=== PATIENT | male | born 1945 | race African-American/Black ===

== ENCOUNTER 2020-12-01 13:27 | Inpatient (IN) | payer OTHER ==
[2020-12-01] MEDS ORDERED: hydrALAZINE 20 MG/ML VIAL SLOW IVP PRN (14:50)
[2020-12-01] MEDS ORDERED: Acetaminophen 500 MG TAB PO PRN (14:50)
[2020-12-01] MEDS ORDERED: Ondansetron ODT 4 MG TAB PO PRN (14:50)
[2020-12-01] MEDS ORDERED: Ondansetron PF 4 MG/2 ML Vial IVP PRN (14:50)
[2020-12-01 17:31] VITALS: BMI 25.2
[2020-12-01] MEDS ORDERED: Atorvastatin Calcium 40 MG TAB PO SCH (21:00)
[2020-12-01] MEDS: Famotidine 20 MG TAB PO SCH (21:37)
[2020-12-02 05:15] LABS: #Eosinphils 0.2 thou/uL (0.0-0.7); #Lymphocytes 2.4 thou/uL (1.20-3.40); #Monocytes 0.4 thou/uL (0.11-0.59); #Neutrophils 2.5 thou/uL (1.40-6.50); %Basophils 0.4 % (0.0-1.0); %Eosinophils 4.4 % (0.0-10.0); %Lymphocytes 43.2 % (21.0-51.0); Hemoglobin 13.6 g/dL (14.0-18.0); Mean Corpuscular HGB CONC 32.8 g/dL (32.0-36.0); Mean Corpuscular Volume 88.5 fL (78.0-98.0); Mean Platelet Volume 6.5 fL (7.4-10.4); Platelet Count 204 thou/uL (130-400); RBC Distribution Width 12.4 % (11.5-14.5); Red Blood Cell (RBC) Count 4.67 mill/uL (4.70-6.10); White Blood Cell (WBC) Count 5.6 thou/uL (4.8-10.8)
[2020-12-02 05:35] LABS: Hemoglobin A1c 6.7 % (4.0-6.0)
[2020-12-02 05:43] LABS: Anion Gap 15 mmol/L (10-20); BUN (Urea Nitrogen) 7 mg/dL (8.4-25.7); Calc. Creatinine Clearance 75 mL/min (70-130); Calcium 9.3 mg/dL (7.8-10.44); Carbon Dioxide 23 mmol/L (23-31); Cardiac Risk 5.4 (Less than 4.5); Chloride 103 mmol/L (98-107); Cholesterol 270 mg/dl (< 200 Desired); Glucose 106 mg/dL (83-110); HDL Cholesterol 50 mg/dL (>60 Neg Risk); LDL Cholesterol, Calculated 191 mg/dL; Potassium 3.7 mmol/L (3.5-5.1); Sodium 137 mmol/L (136-145); Triglycerides 146 mg/dL (Less than 150)
[2020-12-02] MEDS ORDERED: DICLOFENAC SODIUM TP PRN (07:48)
[2020-12-02] MEDS ORDERED: Artificial Tear Sol 15 ML BOT EA EYE PRN (07:48)
[2020-12-02] MEDS ORDERED: Non-Formulary Item 1 EACH (Methocarbamol [Methocarbamol] 750 MG Tablet) PO PRN (07:48)
[2020-12-02] MEDS ORDERED: Albuterol Sulfate 2.5 mg/3 ml Neb NEB PRN (07:48)
[2020-12-02] MEDS ORDERED: Diclofenac 1% 100 GM GEL TP PRN (07:56)
[2020-12-02] MEDS ORDERED: Methocarbamol 500 MG TAB PO PRN (07:57)
[2020-12-02] MEDS ORDERED: Non-Formulary Item 1 EACH (Tiotropium Bromide [Spiriva] 18 MCG Cap.W.Dev) INH SCH (09:00)
[2020-12-02] MEDS ORDERED: Non-Formulary Item 1 EACH (Gabapentin [Gabapentin] 600 MG Tablet) PO SCH (09:00)
[2020-12-02] MEDS ORDERED: Non-Formulary Item 1 EACH (Ferrous Sulfate [Ferrous Sulfate] 325 MG Tab) PO SCH (09:00)
[2020-12-02] MEDS: Gabapentin 300 MG CAP PO SCH ×3 (09:32→22:11)
[2020-12-02] MEDS: Amlodipine 10 MG TAB PO SCH (09:32)
[2020-12-02] MEDS: Magnesium Oxide 400 MG TAB PO SCH (09:32)
[2020-12-02] MEDS: Finasteride 5 MG TAB PO SCH (09:32)
[2020-12-02] MEDS: Ferrous Sulfate 325 MG TAB PO SCH (09:33)
[2020-12-02] MEDS: Famotidine 20 MG TAB PO SCH ×3 (09:33→22:23)
[2020-12-02] MEDS: Aspirin 81 mg Enteric Coated Tablet PO SCH (11:35)
[2020-12-02] MEDS: Ipratropium Bromide 2.5 ml Neb NEB SCH ×2 (12:14→19:00)
[2020-12-02] MEDS ORDERED: Dextrose 5% in Water 1,000 ML IV PRN (14:30)
[2020-12-02] MEDS ORDERED: Insulin Regular 300 UNITS/3 ML VIAL SC PRN (14:30)
[2020-12-02] MEDS ORDERED: Dextrose 50% Abboject 50 ML SYRINGE IVP PRN (14:30)
[2020-12-02] MEDS ORDERED: Rosuvastatin 10 MG TAB PO SCH (21:00)
[2020-12-02] MEDS ORDERED: Prazosin HCl 1 MG CAP PO SCH (21:00)
[2020-12-02] MEDS ORDERED: traZODone HCl 50 MG TAB PO SCH (21:00)
[2020-12-02] MEDS ORDERED: Non-Formulary Item 1 EACH (Trazodone Hcl [Trazodone Hcl] 100 MG Tablet) PO SCH (21:00)
[2020-12-03] MEDS: Ipratropium Bromide 2.5 ml Neb NEB SCH ×2 (00:20→07:07)
[2020-12-03 08:19] VITALS: BP 118/60; TEMP 97.9
[2020-12-03] MEDS: Aspirin 81 mg Enteric Coated Tablet PO SCH (10:32)
[2020-12-03] MEDS: Gabapentin 300 MG CAP PO SCH (10:32)
[2020-12-03] MEDS: Finasteride 5 MG TAB PO SCH (10:32)
[2020-12-03] MEDS: Ferrous Sulfate 325 MG TAB PO SCH (10:33)
[2020-12-03] MEDS: Famotidine 20 MG TAB PO SCH ×2 (10:33→10:37)
[2020-12-03] MEDS: Magnesium Oxide 400 MG TAB PO SCH ×2 (10:33→10:42)
[2020-12-03] MEDS: Amlodipine 10 MG TAB PO SCH (10:34)
== END 2020-12-03 11:04 | disposition home health service (06) | DRG 69 ==
LOC: 2SE 14:08 → EEVIPCON 14:50 → OBSVTOIN 14:50
PROVIDERS: ADMIT Family Medicine; ATTEND Internal Medicine
DX: G45.9 Transient cerebral ischemic attack, unspecified (principal); R47.01 Aphasia; R47.1 Dysarthria and anarthria; E11.9 Type 2 diabetes mellitus without complications; E78.5 Hyperlipidemia, unspecified; R20.0 Anesthesia of skin; R47.81 Slurred speech; N40.0 Benign prostatic hyperplasia without lower urinary tract symptoms; B18.2 Chronic viral hepatitis C; G89.29 Other chronic pain; G30.9 Alzheimer's disease, unspecified; F02.80 Dementia in other diseases classified elsewhere, unspecified severity, without behavioral disturbance, psychotic disturbance, mood disturbance, and anxiety; M48.00 Spinal stenosis, site unspecified; E55.9 Vitamin D deficiency, unspecified; G93.89 Other specified disorders of brain; Z79.51 Long term (current) use of inhaled steroids; Z79.82 Long term (current) use of aspirin; Z79.899 Other long term (current) drug therapy; Z88.8 Allergy status to other drugs, medicaments and biological substances; Z91.14 Patient's other noncompliance with medication regimen
CPT/HCPCS: 36415; 36416; 70551; 80048; 80061; 83036; 85025; 93306; 94640; 95712; 95819; 95957